=== PATIENT | female | born 1985 | race Caucasian/White ===

== ENCOUNTER 2017-03-26 14:27 | Emergency (ER) | payer BC ==
[~2017-03-26] VITALS: Ht 177.8 cm; Wt 71.8 kg
[~2017-03-26 14:27] MED LIST: AMOX-102 PO; ONDA4TAB6 PO; [UNRECOGNIZED DRUG - CODE] PO
[2017-03-26] MEDS ORDERED: normal saline 1000ML IV soln IV ONE (14:55)
[2017-03-26] MEDS ORDERED: ondansetron/PF 4mg/2ml inj IV ONE ×2 (14:55→16:10)
[2017-03-26] MEDS ORDERED: HYDROmorphone inj. 0.5 MG/0.5 ML DISP.SYRIN IV ONE (14:55)
[2017-03-26 15:12] LABS: BASOPHILS % (AUTO) 0.4 % (0-1); EOSINOPHILS # (AUTO) 0.1 X10'3 (0-0.9); HEMATOCRIT 34.9 % (35.0-45.0); HEMOGLOBIN 11.6 g/dl (12.0-16.0); LYMPHOCYTES # (AUTO) 1.3 X10'3 (1.1-4.8); LYMPHOCYTES % (AUTO) 19.3 % (21-51); MEAN CORPUSCULAR HEMOGLOBIN 28.6 PG (27.0-31.0); MEAN CORPUSCULAR HGB CONC 33.2 % (33.0-36.5); MEAN CORPUSCULAR VOLUME 86.2 FL (78-98); MONOCYTES # (AUTO) 0.9 X10'3 (0-0.9); MONOCYTES % (AUTO) 13.9 % (2-12); NEUTROPHILS # (AUTO) 4.4 X10'3 (1.8-7.7); NEUTROPHILS % (AUTO) 65.4 % (42-75); PLATELET COUNT 308 X10'3 (140-440); RED BLOOD COUNT 4.05 X10'6 (4.20-5.60); RED CELL DISTRIBUTION WIDTH 14.3 % (11.5-14.5); WHITE BLOOD COUNT 6.8 X10'3 (4.5-11.0)
[2017-03-26 15:16] LABS: URINE HCG NEGATIVE (NEG)
[2017-03-26 15:18] LABS: CLARITY,URINE Clear (Clear); COLOR,URINE Yellow (Yellow); GLUCOSE, URINE Negative (Neg); KETONES,URINE 15 mg/dl (Neg); LEUKOCYTE ESTERASE ,URINE Negative (Neg); NITRITES, URINE Negative (Neg); OCCULT BLOOD,URINE Negative (Neg); PROTEIN,URINE Trace mg/dl (Neg); UROBILINOGEN,URINE 0.2 E.U/dL (0.2-1.0)
[2017-03-26 15:20] LABS: UA COLLECTION TYPE CLN CATCH MIDSTREAM
[2017-03-26 15:22] LABS: INR 1.1 INR; PROTHROMBIN TIME 11.6 SECONDS (9.0-12.0)
[2017-03-26 15:27] LABS: ALANINE AMINOTRANSFERASE 22 U/L (12-78); ALBUMIN 3.4 G/DL (3.4-5.0); ALBUMIN/GLOBULIN RATIO 0.8 (1.1-1.5); ALKALINE PHOSPHATASE 73 IU/L (46-116); AMYLASE 32 U/L (25-115); ANION GAP 8 (8-16); ASPARTATE AMINO TRANSFERASE 14 U/L (10-37); BILIRUBIN,TOTAL 0.6 MG/DL (0.1-1.0); BLOOD UREA NITROGEN 5 MG/DL (7-18); CALCIUM 8.6 MG/DL (8.5-10.1); CHLORIDE 103 MMOL/L (99-107); GLUCOSE 85 MG/DL (70-104); LIPASE 73 U/L (73-393); SODIUM 139 MMOL/L (135-145); TOTAL CARBON DIOXIDE 28.4 MMOL/L (24-32); TOTAL PROTEIN 7.6 G/DL (6.4-8.2); eGFR 64 ML/MIN
[2017-03-26 15:31] LABS: POTASSIUM 2.9 MMOL/L (3.5-5.1)
[2017-03-26 15:40] LABS: MUCUS STRANDS MANY /LPF (Neg); SQUAMOUS EPITHELIAL CELL,UR MODERATE /LPF (FEW)
[2017-03-26] MEDS ORDERED: potassium Cl oral solution 20 MEQ/15 ML PO ONE (15:40)
[2017-03-26 15:41] LABS: BACTERIA,URINE FEW /HPF (Neg); RBC,URINE 0-2 /HPF (0-2)
[2017-03-26] MEDS ORDERED: dexamethasone sod phosphate 10mg/ml inj IM STA (16:09)
[2017-03-26] MEDS ORDERED: CIPR-230 PO (16:16)
[2017-03-26] MEDS ORDERED: METH4TAB3 PO (16:16)
[2017-03-26] MEDS ORDERED: ONDA4TAB9 PO (16:16)
[2017-03-26] MEDS ORDERED: METR250T PO (16:16)
[2017-03-26] MEDS ORDERED: HYDR-569 PO (16:16)
[2017-03-26 17:19] VITALS: BP 120/73
== END 2017-03-26 17:28 | disposition home or self-care (01) ==
LOC: ER 14:29
DX: E86.0 Dehydration (principal); E87.6 Hypokalemia; K50.90 Crohn's disease, unspecified, without complications; Z98.890 Other specified postprocedural states
CPT/HCPCS: 36415; 74176; 80053; 81001; 81025; 82150; 83605; 83690; 85025; 85610; 87040; 87088; 96361; 96372; 96374; 96375; 99285; J1100; J1170; J2405; J7030